=== PATIENT | male | born 1995 | race Caucasian/White ===

== ENCOUNTER 2016-04-01 21:10 | Emergency (ER) | payer OTHER ==
[2016-04-01 21:17] VITALS: BP 173/94; TEMP 99.6; BMI 18.1
[2016-04-01] MEDS ORDERED: DECADRON 4 MG/ML SDV IM STA (21:28)
[2016-04-01] MEDS ORDERED: TORADOL IM STA (21:28)
--- NOTE | 2016-04-01 21:36 | ED.PDOC ---
General ED Provider: Dr. PEPE CAI Chief Complaint: Allergic Reaction Stated Complaint: Patient applied capsaicin cream to the thigh there are red and burning, came for the evaluation Time Seen by Physician: 21:35 Mode of Arrival: Walk-In Information Source: Patient Nursing and Triage Documentation Reviewed and Agree: Yes Skin Complaint Exam - Skin/Soft Tissue Complaint/Exam Symptoms Are: Still present Timing: Constant Initial Severity: Mild Current Severity: Mild Character: Reports: Redness, Painful. Denies: Swelling, Raised Aggravating: Reports: Touch Alleviating: Reports: None Associated Signs and Symptoms: Reports: Tenderness. Denies: Fever, Chills, Itching, Drainage, Bruising, Red streaks, Joint swelling Related Surgical History: Reports: None Recent Exposure to Others w/Similar Symptoms: No Skin Findings: Present: Erythema Differential Diagnoses: Other (local reaction) Review of Systems - Review Of Systems Constitutional: Reports: No symptoms Eyes: Reports: No symptoms Ears, Nose, Mouth, Throat: Reports: No symptoms Respiratory: Reports: No symptoms Cardiac: Reports: No symptoms GI: Reports: No symptoms : Reports: No symptoms Musculoskeletal: Reports: No symptoms Skin: Reports: Lesions Neurological: Reports: No symptoms Endocrine: Reports: No symptoms Hematologic/Lymphatic: Reports: No symptoms All Other Systems: Reviewed and Negative Past Medical History - Past Medical History Previously Healthy: Yes Endocrine: Reports: None Cardiovascular: Reports: None Respiratory: Reports: None Hematological: Reports: None Gastrointestinal: Reports: None Genitourinary: Reports: None Neuro/Psych: Reports: None Musculoskeletal: Reports: None Cancer: Reports: None - Surgical History General Surgical History: Reports: None - Family History Family History: Reports: None - Social History Smoking Status: Current every day smoker Smoking Cessation Counseling Time: > 3 min - 10 min Hx Substance Use: No Alcohol Screening: None - Immunizations Tetanus Shot up to Date: Yes Physical Exam - Physical Exam Appearance: Well-appearing, No pain distress, Well-nourished Eyes: NICO, EOMI, Conjunctiva clear ENT: Ears normal, Nose normal, Oropharynx normal Respiratory: Airway patent, Breath sounds clear, Breath sounds equal, Respirations nonlabored Cardiovascular: RRR, Pulses normal, No rub, No murmur GI/: Soft, Nontender, No masses, Bowel sounds normal, No Organomegaly Musculoskeletal: Normal strength, ROM intact, No edema, No calf tenderness Skin: Warm (red areas on the both thigh, where the crea is apllied.), Dry Neurological: Sensation intact, Motor intact, Reflexes intact, Cranial nerves intact, Alert, Oriented Psychiatric: Affect appropriate, Mood appropriate Critical Care Note - Critical Care Note Total Time (mins): 0 Course - Course Orders, Labs, Meds: Orders Category Date Time Status Dexamethasone 4 mg/ml Inj [Decadron 4 mg/ml Sdv] MEDS 04/01/16 21:28 Discontinued 4 mg IM ONCE STA Ketorolac Tromethamine [Toradol] MEDS 04/01/16 21:28 Discontinued 60 mg IM ONCE STA Medications Discontinued Medications Generic Name Dose Route Start Last Admin Trade Name Freq PRN Reason Stop Dose Admin Dexamethasone Sodium Phosphate 4 mg 04/01/16 21:28 Decadron 4 Mg/Ml Sdv IM 04/01/16 21:29 ONCE STA Ketorolac Tromethamine 60 mg 04/01/16 21:28 Toradol IM 04/01/16 21:29 ONCE STA Vital Signs: Temp Pulse Resp BP Pulse Ox 04/01/16 21:11 99.6 F 86 20 173/94 H 98 Departure - Departure Time of Disposition: 21:44 Disposition: HOME SELF-CARE Discharge Problem: Allergic reaction Qualifiers: Encounter type: initial encounter Qualifier Code: (T78.40XA) Allergy, unspecified, initial encounter Instructions: Capsaicin (On the skin) Condition: Stable Pt referred to PMD for follow-up: Yes Additional Instructions: STOP CAPSAICIN CREAM ICE PACK TO THE AREAS. Tylenol prn Prescriptions: Fluocinonide/Emollient Base [Fluocinonide-E 0.05% Cream] 15 gm TP TID #1 vial Prednisone 10 mg PO BIDWM #14 tablet Allergies/Adverse Reactions: Allergies No Known Allergies Allergy (Verified 04/01/16 21:10) Home Medications: Ambulatory Orders Fluocinonide/Emollient Base [Fluocinonide-E 0.05% Cream] 15 gm TP TID #1 vial Prednisone 10 mg PO BIDWM #14 tablet 04/01/16 Disposition Discussed With: Patient, Family
== END 2016-04-01 22:05 | disposition home or self-care (01) ==
LOC: ED 21:10
DX: T50.995A Adverse effect of other drugs, medicaments and biological substances, initial encounter (principal); L23.3 Allergic contact dermatitis due to drugs in contact with skin; F17.210 Nicotine dependence, cigarettes, uncomplicated
CPT/HCPCS: 96372; 99282

== ENCOUNTER 2016-09-10 17:52 | Emergency (ER) ==
[2016-09-10 17:59] VITALS: BP 139/79; TEMP 99.6; BMI 23.0
--- NOTE | 2016-09-10 18:16 | ED.PDOC ---
General Mode of Arrival: Walk-In Information Source: Patient <BAYRON ORONA - Last Filed: 09/10/16 18:13> Stated Complaint: Patient states that he fell out of a roof, 19 Feet high Denies Landed on his feet and back. Denies Hitting head. Denies any chest pain or neck pain. Trisha any Difficulty breathing. Time Seen by Physician: 19:00 Exam Limitations: No limitations Nursing and Triage Documentation Reviewed and Agree: Yes <USAMA KNOWLES - Last Filed: 09/10/16 19:45> ED Provider: Dr. USAMA KNOWLES Chief Complaint: Fall Trauma/Injury Complaint Exam - Trauma Complaint/Exam Location of Pain or Injury: Reports: Head, Neck, Chest, Abdomen, Back, RLE Mechanism of Injury: Reports: Fall (18 feet) Onset/Duration: this morning Symptoms Are: Still present Timing of Treatment: Delayed (a few hours arrived ambulatory to E/D FALL WAS ABOUT 3 PM) Initial Severity: Mild Current Severity: Mild Character: Reports: Aching Aggravating: Reports: Movement Alleviating: Reports: Rest Associated Signs and Symptoms: Denies: LOC, Confusion, Memory loss, Lethargy, Vomiting, Bleeding, Bruising, Swelling, Extremity disuse, Painful respiration, Hoarseness, Dysphagia, Hemoptysis, Significant blood loss Penetrating Injury Risk Factors: Reports: None Related Surgical History: Reports: None Nexus Low Risk Criteria: No post-midline CS tender, No evidence of intoxicat., No Altered LOC (HAS A DULL DISCOMFOT NECK NO PAIN IS OFFERED ), No focal neuro deficit, No distracting injuries Glascow Coma Scale (see protocol): 15 Compartment Syndrome Risk Factors: Present: Pain Trauma Findings: Present: Neck spasm, Pelvic tenderness (RIGHT GREATER TROCHANTER ). Absent: [place] eyes, Hemotympanum, Nasal deformity, Dental tenderness, Dental injury, Dental malocclusion, SubQ Air, Crepitus, Airway obstructed, Trachea displaced, Labored respirations, Decreased breath sounds, Muffled heart sounds, Weak pulses, Absent pulses, Abdominal distention, Pelvic instability, Back malalignment, Limited ROM, Agitated, Uncooperative Skin Findings: Present: Normal findings Differential Diagnoses: Fracture, Dislocation, Sprain, Strain <BAYRON ORONA - Last Filed: 09/10/16 18:13> Review of Systems - Review Of Systems Constitutional: Reports: No symptoms Eyes: Reports: No symptoms Ears, Nose, Mouth, Throat: Reports: No symptoms Respiratory: Reports: No symptoms Cardiac: Reports: No symptoms GI: Reports: No symptoms : Reports: No symptoms Musculoskeletal: Reports: Back pain, Joint pain (ANKLE RIGHT ) Skin: Reports: No symptoms Neurological: Reports: No symptoms Endocrine: Reports: No symptoms Hematologic/Lymphatic: Reports: No symptoms All Other Systems: Reviewed and Negative <BAYRON ORONA Last Filed: 09/10/16 18:13> Past Medical History - Past Medical History Previously Healthy: Yes Endocrine: Reports: None Cardiovascular: Reports: None Respiratory: Reports: None Hematological: Reports: None Gastrointestinal: Reports: None Genitourinary: Reports: None Neuro/Psych: Reports: None Musculoskeletal: Reports: None Cancer: Reports: None - Surgical History General Surgical History: Reports: None - Family History Family History: Reports: None - Social History Smoking Status: Current every day smoker Hx Substance Use: No Alcohol Screening: None <BAYRON ORONA Last Filed: 09/10/16 18:13> Physical Exam - Physical Exam Appearance: Well-appearing, No pain distress, Well-nourished Eyes: NICO, EOMI, Conjunctiva clear ENT: Ears normal, Nose normal, Oropharynx normal Respiratory: Airway patent, Breath sounds clear, Breath sounds equal, Respirations nonlabored Cardiovascular: RRR, Pulses normal, No rub, No murmur GI/: Soft, Nontender, No masses, Bowel sounds normal, No Organomegaly Musculoskeletal: Normal strength, ROM intact, No edema, No calf tenderness Skin: Warm, Dry, Normal color Neurological: Sensation intact, Motor intact, Reflexes intact, Cranial nerves intact, Alert, Oriented Psychiatric: Affect appropriate, Mood appropriate <BAYRON ORONA Last Filed: 09/10/16 18:13> Interpretation - Radiology Interpretation Radiology Interpretation By: Radiologist Radiology Results: Negative Exam Interpreted: CT Scan Radiology Interpretation By: ED Physician Radiology Results: Negative Exam Interpreted: Other (Right food and Ankle ) <USAMA KNOWLES - Last Filed: 09/10/16 19:45> Physician Notification - Case Discussed Physician Notified: ELENI Time of Notification: 19:00 <BAYRON ORONA Last Filed: 09/10/16 18:13> Critical Care Note - Critical Care Note Total Time (mins): 0 <BAYRON ORONA - Last Filed: 09/10/16 18:13> Course - Course Hematology/Chemistry: 09/10/16 18:15 09/10/16 18:15 <JAMIEKALIUSAMA - Last Filed: 09/10/16 19:45> - Course Orders, Labs, Meds: Lab Review 09/10/16 09/10/16 18:15 19:20 WBC 10.01 RBC 4.71 Hgb 14.7 Hct 42.5 MCV 90.2 MCH 31.2 H MCHC 34.6 RDW Coeff of [place] 13.2 Plt Count 255 Immature Gran % (Auto) 0.3 Neut % (Auto) 52.9 Lymph % (Auto) 37.5 [place] % (Auto) 7.3 Eos % (Auto) 1.5 Baso % (Auto) 0.5 Immature Gran # (Auto) 0.0 Neut # 5.3 Lymph # 3.8 H [place] # 0.7 Eos # 0.2 Baso # 0.1 Sodium 141 Potassium 3.6 Chloride 106 Carbon Dioxide 24 Anion Gap 14.6 BUN 12 Creatinine 1.23 H Estimated GFR (MDRD) 74.00 BUN/Creatinine Ratio 9.75 Glucose 85 Calcium 9.6 Total Bilirubin 0.70 AST 14 L ALT 8 L Alkaline Phosphatase 79 Total Protein 7.3 Albumin 4.7 Globulin 2.6 Albumin/Globulin Ratio 1.81 Urine Color Yellow Urine Clarity Clear Urine pH 5.5 Ur Specific [place] 1.020 Urine Protein 1+ Urine Glucose (UA) Negative Urine Ketones Negative Urine Blood Negative Urine Nitrite Negative Urine Bilirubin Negative Urine Urobilinogen 1.0 Ur Leukocyte Esterase Negative Urine Microscopic WBC 2-5 Ur Squamous Epith Cells 2-5 Urine Bacteria Trace Orders Category Date Time Status NPO REMINDER: IMAGING ONCE CARE 09/10/16 18:13 Completed CBC W/ AUTO DIFF Stat LAB 09/10/16 18:15 Completed COMPREHENSIVE METABOLIC PANEL Stat LAB 09/10/16 18:15 Completed URINALYSIS C & S IF INDICATED Stat LAB 09/10/16 19:20 Completed ANKLE, RIGHT MIN 3 VIEWS Stat RADS 09/10/16 18:[address] ABDOMEN/PELVIS W CONTRAST Stat RADS 09/10/16 18:[address] CERVICAL SPINE W/O CONTRAST Stat RADS 09/10/16 18:[address] CHEST W/CONTRAST Stat RADS 09/10/16 18:[address] HEAD W/O CONTRAST Stat RADS 09/10/16 18:[address] LUMBAR SPINE W/O CONTRAST Stat RADS 09/10/16 18:[address] THORACIC SPINE W/O CONTRAST Stat RADS 09/10/16 18:11 Taken FOOT, RIGHT 3 VIEWS Stat RADS 09/10/16 18:11 Taken Vital Signs: Temp Pulse Resp BP Pulse Ox 09/10/16 17:53 99.6 F 76 20 139/79 98 Departure - Departure Pt referred to PMD for follow-up: No Disposition Discussed With: Patient <BAYRON ORONA - Last Filed: 09/10/16 18:13> - Departure Time of Disposition: 19:39 <USAMA KNOWLES - Last Filed: 09/10/16 19:45> - Departure Disposition: HOME SELF-CARE Discharge Problem: Back sprain Fall Qualifiers: Encounter type: initial encounter Qualifier Code: (W19.XXXA) Unspecified fall, initial encounter Ankle sprain Qualifiers: Encounter type: initial encounter Involved ligament of ankle: unspecified ligament Laterality: right Qualifier Code: (S93.401A) Sprain of unspecified ligament of right ankle, initial encounter Instructions: Back Pain (ED), Acute Low Back Pain (ED), Hip Pain (ED) Condition: Good Additional Instructions: Please call your Family Physician as soon as possible to schedule a follow-up appointment. Prescriptions: Hydrocodone/Acetaminophen [[place] 10-325 Tablet] 1 each PO Q8HR #7 tablet Ibuprofen [Motrin] 600 mg PO Q6H PRN #30 tablet PRN Reason: Analgesia Allergies/Adverse Reactions: Allergies No Known Allergies Allergy (Verified 09/10/16 17:59) Home Medications: Ambulatory Orders Hydrocodone/Acetaminophen [[place] 10-325 Tablet] 1 each PO Q8HR #7 tablet Ibuprofen [Motrin] 600 mg PO Q6H PRN #30 tablet 09/10/16
[2016-09-10] MEDS ORDERED: NORCO 10-325 PO STA (18:19)
[2016-09-10 18:30] LABS: BASOPHILS # (AUTO) 0.1 K/uL (0-0.2); BASOPHILS % (AUTO) 0.5 % (0.0-3.0); EOSINOPHILS # (AUTO) 0.2 K/ul (0.0-0.7); EOSINOPHILS % (AUTO) 1.5 % (0.0-7.0); HEMATOCRIT 42.5 % (42.0-52.0); HEMOGLOBIN 14.7 g/dl (14.0-18.0); IMMATURE GRANULOCYTE % (AUTO) 0.3 % (0.0-5.0); LYMPHOCYTES # (AUTO) 3.8 K/uL (0.60-3.4); LYMPHOCYTES % (AUTO) 37.5 (10.0-50.0); MEAN CORPUSCULAR HEMOGLOBIN 31.2 pg (27.0-31.0); MEAN CORPUSCULAR HGB CONC 34.6 (31.8-35.4); MEAN CORPUSCULAR VOLUME 90.2 fl (80.0-94.0); MONOCYTES # (AUTO) 0.7 K/uL (0.4-2.0); MONOCYTES % (AUTO) 7.3 (0-10); NEUTROPHILS # (AUTO) 5.3 K/ul (2.0-6.9); NEUTROPHILS % (AUTO) 52.9; PLATELET COUNT 255 10^3/uL (140-440); RED BLOOD COUNT 4.71 10^6/ul (4.70-6.10); WHITE BLOOD COUNT 10.01 K/ul (4.2-10.2)
[2016-09-10 18:51] LABS: ALBUMIN 4.7 g/dL (3.4-5.0); ALBUMIN/GLOBULIN RATIO 1.81; ANION GAP 14.6; BILIRUBIN,TOTAL 0.7 mg/dL (0.00-1.20); BUN/CREATININE RATIO 9.75; CALCIUM 9.6 mg/dL (8.2-10.2); CREATININE 1.23 mg/dL (0.60-1.10); POTASSIUM 3.6 mmol/L (3.5-5.1); TOTAL PROTEIN 7.3 g/dL (6.4-8.2)
[2016-09-10 19:26] LABS: BILIRUBIN,URINE Negative (NEGATIVE); KETONES,URINE Negative (NEGATIVE); LEUKOCYTE ESTERASE ,URINE Negative (NEGATIVE); NITRITE,URINE Negative (NEGATIVE); PH,URINE 5.5 (5-9); PROTEIN,URINE 1+ (NEGATIVE); URINE, BLOOD Negative (NEGATIVE)
[2016-09-10 19:28] LABS: ADD URINE MICROSCOPIC YES; BACTERIA,URINE TRACE (NOT PRESENT)
--- NOTE | 2016-09-10 19:32 | CT ---
EXAM: CT Head HISTORY: Trauma, fall COMPARISON: 06/27/2012 TECHNIQUE: CT head performed without contrast FINDINGS: There is no mass effect, midline shift, or intracranial hemmorhage. Decker white different iation is preserved. There is no extra-axial collection. The ventricles, sulci, and basal cisterns are patent and symmetric. There is no depressed calvarial fracture. The mastoid air cells are brian ar. The visualized paranasal sinuses are clear. IMPRESSION: No acute intracranial abnormality.
--- NOTE | 2016-09-10 19:34 | CT ---
EXAM: CT cervical spine without intravenous contrast 09/10/2016. Sagittal and coronal reformatted images obtained HISTORY: Fall. Trauma COMPARISON: None. FINDINGS: Normal anatomic alignment is maintained. Vertebral bodies appear intact without evidence of fracture. The facet joints align normally. The prevertebral soft tissues appear within normal limits. IMPRESSION: No acute osseous abnormality of the cervical spine.
--- NOTE | 2016-09-10 19:36 | CT ---
EXAM: CT thoracic spine without contrast HISTORY: Pain T5 or 6 after fall of 18 feet COMPARISON: None TECHNIQUE: CT thoracic spine performed without intravenous contrast. Coronal and sagittal reformat josh images obtained. FINDINGS: Please see separate report CT chest regarding findings in the chest vertebral bodies norm al height. No fracture. No subluxation. Intervertebral spaces maintained. Central canal grossly patent. IMPRESSION: No fracture or subluxation.
--- NOTE | 2016-09-10 19:39 | CT ---
EXAM: CT lumbar spine without contrast HISTORY: Fall COMPARISON: 06/27/2012 TECHNIQUE: CT lumbar spine performed without intravenous contrast. Coronal and sagittal reformatte d images obtained. FINDINGS: Vertebral bodies normal in height. No fracture. No subluxation. Intervertebral disc sp aces maintained. Central canal grossly patent. Sacroiliac joints intact. Please see separate repo rt CT abdomen pelvis regarding findings in the abdomen pelvis. IMPRESSION: No fracture or subluxation.
--- NOTE | 2016-09-10 19:40 | DI ---
EXAM: Right foot three views HISTORY: Fall COMPARISON: None FINDINGS: The bones are normal. The joints are normal. No focal soft tissue abnormality. IMPERSSION: Normal examination.
--- NOTE | 2016-09-10 19:42 | DI ---
EXAM: Three views right ankle Clinical indication: Trauma. Findings: There is no soft tissue abnormality. There is no right ankle effusion. There are no fractures, dis locations or other significant bony abnormalities. Impression: Negative radiographs of the right ankle.
--- NOTE | 2016-09-10 19:47 | CT ---
EXAM: CT chest with intravenous contrast 09/10/2016. Sagittal and coronal reformatted images provi ded HISTORY: Fall. Trauma with pain COMPARISON: 06/27/2012 FINDINGS: The heart size appears within normal limits no pericardial effusion. No acute mediastinal vascular injury. There is no pulmonary consolidation, effusion or pneumothorax. The lungs appear normally aerated. The visualized osseous structures appear intact. IMPRESSION: No acute process.
[2016-09-10] MEDS ORDERED: ZOFRAN 4 MG/2 ML IVP STA (19:50)
[2016-09-10] MEDS ORDERED: MORPHINE 4 MG/ML SYRINGE IVP STA (19:50)
--- NOTE | 2016-09-10 20:09 | CT ---
EXAM: CT of the abdomen pelvis with intravenous contrast 09/10/2016. Sagittal and coronal reformat josh images obtained HISTORY: Pain. Fall COMPARISON: None. FINDINGS: The liver, gallbladder, adrenal glands, kidneys, spleen and pancreas show no acute abnorm ality. There is no evidence of bowel obstruction. Unremarkable urinary bladder. No free air or free fluid. The visualized osseous structures appear intact. There is no acute fracture. IMPRESSION: No acute process.
== END 2016-09-10 20:12 | disposition home or self-care (01) ==
LOC: ED 17:52
DX: S93.401A Sprain of unspecified ligament of right ankle, initial encounter (principal); S39.92XA Unspecified injury of lower back, initial encounter; S29.9XXA Unspecified injury of thorax, initial encounter; S39.91XA Unspecified injury of abdomen, initial encounter; S19.9XXA Unspecified injury of neck, initial encounter; S09.90XA Unspecified injury of head, initial encounter; M62.838 Other muscle spasm; R10.2 Pelvic and perineal pain; W13.2XXA Fall from, out of or through roof, initial encounter; F17.210 Nicotine dependence, cigarettes, uncomplicated
CPT/HCPCS: 36415; 80053; 81001; 85025; 96374; 96375; 99284

== ENCOUNTER 2018-02-06 14:10 | Emergency (ER) | payer OTHER ==
[2018-02-06 14:22] VITALS: BP 148/88; TEMP 97.8; BMI 28.0
[2018-02-06] MEDS ORDERED: SODIUM CHLORIDE 1,000 ML IV STA (14:30)
--- NOTE | 2018-02-06 14:30 | ED.PDOC ---
General ED Provider: Dr. EMORY DE JESUS Chief Complaint: Headache Stated Complaint: Headache started 3 days [employer] while working in [place]. He and another drove home (here); HER continues. Similar to prior HAs which he has as a child until teens. Time Seen by Physician: 14:29 Mode of Arrival: Walk-In Information Source: Patient Exam Limitations: No limitations Nursing and Triage Documentation Reviewed and Agree: Yes Does patient meet sepsis criteria?: No System Inflammatory Response Syndrome: Not Applicable Sepsis Protocol: For patient's 13 years and over: Temp is 96.8 and below OR 101 and greater Pulse >90 BPM Resp >20/minute Acutely Altered Mental Status Are patient's symptoms suggestive of a new infection, such as: -Pneumonia -Skin, Soft Tissue -Endocarditis -UTI -Bone, Joint Infection -Implantable Device -Acute Abdominal Infection -Wound Infection -Meningitis -Blood Stream Catheter Infection -Unknown Review of Systems - Review Of Systems Constitutional: Reports: Malaise GI: Reports: Nausea, Vomiting Neurological: Reports: Headache (From neck up back of head to front bilaterally) All Other Systems: Reviewed and Negative Past Medical History - Past Medical History Previously Healthy: Yes Endocrine: Reports: None Cardiovascular: Reports: None Respiratory: Reports: None Hematological: Reports: None Gastrointestinal: Reports: None Genitourinary: Reports: None Neuro/Psych: Reports: None Musculoskeletal: Reports: None Cancer: Reports: None - Surgical History General Surgical History: Reports: None - Family History Family History: Reports: None - Social History Smoking Status: Current every day smoker, Heavy tobacco smoker Hx Substance Use: No Alcohol Screening: Occasionally Physical Exam - Physical Exam Appearance: Ill-appearing Ill-appearing: Moderate Pain Distress: Moderate Eyes: NICO, EOMI, Right pupil size (4 mm), Left pupil size (4 mm) ENT: Oropharynx normal Neck: Supple Respiratory: Airway patent, Breath sounds clear Cardiovascular: RRR, Pulses normal Musculoskeletal: Normal strength, ROM intact Skin: Warm, Dry, Normal color Neurological: Sensation intact, Motor intact, Alert, Oriented Psychiatric: Affect appropriate, Mood appropriate Critical Care Note - Critical Care Note Total Time (mins): 15 Course - Course Orders, Labs, Meds: Orders Category Date Time Status Ketorolac Tromethamine [Toradol] MEDS 02/06/18 14:33 Discontinued 30 mg IVP ONCE STA Ondansetron HCl/Pf [Zofran 4 mg/2 ml] MEDS 02/06/18 14:34 Discontinued 4 mg IVP ONCE STA Sodium Chloride 0.9% [Sodium Chloride] 1,000 ml MEDS 02/06/18 14:30 Discontinued IV BOLUS Medications Discontinued Medications Generic Name Dose Route Start Last Admin Trade Name Freq PRN Reason Stop Dose Admin Sodium Chloride 1,000 mls @ 1,000 mls/hr 02/06/18 14:30 02/06/18 15:10 Sodium Chloride IV 02/06/18 15:29 1,000 mls/hr BOLUS STA Administration Ketorolac Tromethamine 30 mg 02/06/18 14:33 02/06/18 14:59 Toradol IVP 02/06/18 14:34 30 mg ONCE STA Administration Ondansetron HCl 4 mg 02/06/18 14:34 02/06/18 14:55 Zofran 4 Mg/2 Ml IVP 02/06/18 14:35 4 mg ONCE STA Administration Vital Signs: Temp Pulse Resp BP Pulse Ox 02/06/18 14:11 97.8 F 90 20 148/88 H 97 Departure - Departure Time of Disposition: 16:08 Disposition: HOME SELF-CARE Discharge Problem: Headache Instructions: General Headache (ED) Condition: Good Pt referred to PMD for follow-up: Yes IPMP verified?: No (Narcotics not prescribed) Additional Instructions: Rest; tylenol if needed; resume usual activities effective Friday. Follow up as needed with primary care provider. If needed, use zofran and ultram as prescribed. Prescriptions: Ondansetron [Zofran Odt] 4 mg PO Q6HR PRN #10 tab.rapdis PRN Reason: Nausea / Vomiting Tramadol HCl [Ultram] 50 mg PO Q6HR #10 tablet Allergies/Adverse Reactions: Allergies No Known Allergies Allergy (Verified 02/06/18 14:17) Home Medications: Ambulatory Orders Ondansetron [Zofran Odt] 4 mg PO Q6HR PRN #10 tab.rapdis 02/06/18 Tramadol HCl [Ultram] 50 mg PO Q6HR #10 tablet 02/06/18 Disposition Discussed With: Patient
[2018-02-06] MEDS ORDERED: TORADOL IVP STA (14:33)
[2018-02-06] MEDS ORDERED: ZOFRAN 4 MG/2 ML IVP STA (14:34)
== END 2018-02-06 16:40 | disposition home or self-care (01) ==
LOC: ED 14:10
DX: R51 Headache (principal); F17.210 Nicotine dependence, cigarettes, uncomplicated
CPT/HCPCS: 96361; 96374; 96375; 99282